=== PATIENT | male | born 1940 | race Caucasian/White ===

== ENCOUNTER 2016-09-16 17:02 | Observation (INO) | payer MEDICARE ==
[2016-09-16] MEDS ORDERED: Zofran 4 MG/2 ML VIAL IV PRN ×2 (17:36→19:19)
[2016-09-16 18:12] LABS: Mean Cell Volume 95.8 fl (78-100); Mean Corpuscular Hemoglobin 31.1 pg (26-32); Mean Platelet Volume 10.9 fl (6-9.5); Platelet Count 152 K/mm3 (150-450); Red Blood Count 4.27 M/mm3 (4.1-5.6); Red Cell Distribution Width 15.4 % (11.5-14.0); White Blood Count 7.1 K/mm3 (4.0-10.5)
[2016-09-16 18:25] LABS: ALBUMIN 3.2 g/dL (3.4-5.0); ANION GAP 10.9 MEQ/L (5-15); Carbon Dioxide 28.2 mEq/L (21-32); Potassium 3.5 mEq/L (3.5-5.1); Total Protein 7.8 gm/dL (6.4-8.2)
[2016-09-16] MEDS ORDERED: MORPHINE SULFATE 4 MG INJ IV PRN ×2 (18:36→19:19)
[2016-09-16] MEDS ORDERED: ROCEPHIN 1 Gm-D5w 50 ml Bag** 1 G/50 ML IVPB IV SCH (18:45)
--- NOTE | 2016-09-16 18:53 | PCM.HP ---
History of Present Illness - Chief Complaint Chief Complaint: abdominal pain Date: 09/16/16 History of Present Illness: is a 76 year old male. Who is a poor historian but notes he has been having right upper quadrant pain and vomiting all day. He came to [facility] care and appeared confused and dehydrated and was vomiting with pain in the right upper quadrant. He denies diarrhea or constipation. He usually goes to the [place] for his medical care. He was to have repeat labs several months ago for elevated liver enzymes. He started having discolored urine today as well and felt this was to do with it. denies hemetemesis or coffee ground emesis denies melena or hematochezia. - Review of Systems Constitutional: Chills, Night Sweats, No Fever Eyes: No Symptoms Ears, Nose, & Throat: No Symptoms Respiratory: No Cough, No Short Of Breath Cardiac: No Chest Pain, No Edema, No Syncope Abdominal/Gastrointestinal: Abdominal Pain, Nausea, Vomiting, No Diarrhea Genitourinary Symptoms: No Dysuria Musculoskeletal: No Back Pain, No Neck Pain Skin: No Rash Neurological: No Dizziness, No Focal Weakness, No Sensory Changes Psychological: No Symptoms Endocrine: No Symptoms Hematologic/Lymphatic: No Symptoms Immunological/Allergic: No Symptoms Medications & Allergies Home Medications: Home Medication List Albuterol Sulfate [Albuterol Sulfate Hfa] 2 puffs IH Q4H PRN 09/16/16 [History Confirmed 09/16/16] Aspirin 81 mg PO DAILY 09/16/16 [History Confirmed 09/16/16] Lisinopril 20 mg [Zestril 20 MG] 20 mg PO DAILY 09/16/16 [History Confirmed 09/16/16] Allergies/Adverse Reactions: Allergies Allergy/AdvReac Type Severity Reaction Status Date / Time No Known Drug Allergies Allergy Verified 09/16/16 19:03 - Past Medical History Neurological History: Dementia ENT History: No Pertinent History Cardiac History: Congestive Heart Failure, Hypertension Respiratory History: COPD Endocrine Medical History: No Pertinent History Musculoskelatal History: No Pertinent History GI Medical History: No Pertinent History History: No Pertinent History Pyscho-Social History: No Pertinent History Male Reproductive Disorders: No Pertinent History - Past Surgical History Past Surgical History: No Neuro Surgical History: No Pertinent History Cardiac History: No Pertinent History Respiratory Surgery: No Pertinent History GI Surgical History: No Pertinent History Genitourinary Surgical Hx: No Pertinent History Musculskeletal Surgical Hx: No Pertinent History Male Surgical History: No Pertinent History - Social History Smoking Status: Former smoker Alcohol: None Drug Use: none - Physical Exam General Appearance: no apparent distress Neurologic Exam: alert, oriented x 3, cooperative, confusion (he has a history of hallucinations I believe and he denies this now but it appears he may be having some auditory hallucinations and possibly visual as well. He has periods of confusion as well and inappropriately recalls recent events.) Eye Exam: scleral icterus, pale conjunctivae Ears, Nose, Throat Exam: pharynx normal, dry mucous membranes, No pharyngeal erythema Neck Exam: non-tender, supple, No JVD, No lymphadenopathy, No thyromegaly Respiratory Exam: rhonchi Cardiovascular Exam: regular rate/rhythm, normal heart sounds, normal peripheral pulses Gastrointestinal/Abdomen Exam: soft, normal bowel sounds, No tenderness, No distention, No mass, No guarding, No ecchymosis, No rebound Rectal Exam: not done Back Exam: normal inspection, No CVA tenderness, No vertebral tenderness, No rash Extremity Exam: normal inspection, No anita's sign, No pedal edema Skin Exam: warm, dry, No rash, No petechiae Results - Labs Lab/Micro Results: Lab Results-Last 24 Hours 09/16/16 09/16/16 Range/Units 17:50 17:50 WBC 7.1 (4.0-10.5) K/mm3 RBC 4.27 (4.1-5.6) M/mm3 Hgb 13.3 (12.5-18.0) gm/dl Hct 40.9 L (42-50) % MCV 95.8 (78-100) fl MCH 31.1 (26-32) pg MCHC 32.5 (32-36) g/dl RDW 15.4 H (11.5-14.0) % Plt Count 152 (150-450) K/mm3 MPV 10.9 H (6-9.5) fl Sodium 139 (136-145) mEq/L Potassium 3.5 (3.5-5.1) mEq/L Chloride 103 (98-107) mEq/L Carbon Dioxide 28.2 (21-32) mEq/L Anion Gap 10.9 (5-15) MEQ/L BUN 15 (9-20) mg/dL Creatinine 1.38 H (0.55-1.30) mg/dl Estimated GFR 53 ML/MIN Glucose 150 H (70-110) MG/DL Calcium 8.7 (8.5-10.1) mg/dL Total Bilirubin 5.0 H (0.2-1.0) mg/dL AST 85 H (15-37) U/L ALT 102 H (12-78) U/L Alkaline Phosphatase 189 H (46-116) U/L Serum Total Protein 7.8 (6.4-8.2) gm/dL Albumin 3.2 L (3.4-5.0) g/dL Lipase 159 (73-393) U/L - Radiology Impressions Radiology Exams & Impressions: Radiology Procedures Category Date Time Status ABDOMEN AND PELVIS W CONTRAST [CT] Stat Exams 09/16/16 18:35 Ordered Assessment/Plan (1) Abdominal pain Current Visit: Yes Status: Acute Qualifiers: Abdominal location: right upper quadrant Qualified Code(s): R10.11 - Right upper quadrant pain Assessment & Plan: improved with the zofran. with the elevated liver enzymes and the bili check CT abd/pelvis with contrast continue zofran and IV fluids and pain control will check hep b, c, hiv and iron levels as well with the elevated liver enzymes and liver ultrasound if not found etiology on the ct with the mild increase in bands will empirically start Rocephin the UA is pending right now recheck labs in am Code(s): R10.9 - UNSPECIFIED ABDOMINAL PAIN (2) Vomiting Current Visit: Yes Status: Acute Code(s): R11.10 - VOMITING, UNSPECIFIED (3) Essential hypertension Current Visit: Yes Status: Acute Code(s): I10 - ESSENTIAL (PRIMARY) HYPERTENSION (4) COPD (chronic obstructive pulmonary disease) Current Visit: Yes Status: Acute
[2016-09-16] MEDS ORDERED: TYLENOL 325 MG PO PRN (19:08)
[2016-09-16 19:09] LABS: BAND 5 % (0.0-2.0); Eosinophil 1 % (0.00-3.0); Platelet Estimate NORMAL (NORMAL); Total Cells Counted 100
[2016-09-16] MEDS ORDERED: PROTONIX 40 MG IV IV SCH (19:15)
[2016-09-16 19:36] LABS: INR 1.22 (0.8-3.0); PROTIME 13.6 SECONDS (8.83-12.87)
[2016-09-16] MEDS: Lactated Ringers 1,000 ML IV SCH (20:55)
[2016-09-16] MEDS ORDERED: Bystolic 5 MG PO SCH (22:00)
[2016-09-16 23:57] LABS: Collection Type CLEAN CATCH
[2016-09-16 23:58] LABS: ADD URINE CULTURE? YES (NO); Bacteria FEW /HPF (NEGATIVE); COMPLETE URINE MICROSCOPIC? YES; Epithelial Cells RARE /HPF (FEW); Ph 5.5 (5-6); WBC 0-2 /HPF (0-5)
[2016-09-17 05:34] LABS: BASOPHIL % 0.1 % (0.0-0.4); Eosinophil % 1.8 % (0.00-5.0); Granulocytes % 73.4 % (36.0-66.0); Lymphocytes % 13.6 % (24.0-44.0); Mean Cell Volume 95.1 fl (78-100); Mean Platelet Volume 10.9 fl (6-9.5); Monocytes % 11.1 % (0.0-12.0); Platelet Count 142 K/mm3 (150-450); Red Cell Distribution Width 15.3 % (11.5-14.0); White Blood Count 7.1 K/mm3 (4.0-10.5)
[2016-09-17 05:55] LABS: ALBUMIN 2.6 g/dL (3.4-5.0); ALKALINE PHOSPHATASE 163 U/L (46-116); BILIRUBIN,TOTAL 3.3 mg/dL (0.2-1.0); BLOOD UREA NITROGEN 11 mg/dL (9-20); CHLORIDE 106 mEq/L (98-107); Carbon Dioxide 26.7 mEq/L (21-32); Glucose 91 MG/DL (70-110); Potassium 3.5 mEq/L (3.5-5.1); SGOT/AST 73 U/L (15-37); SGPT/ALT 79 U/L (12-78); SODIUM 139 mEq/L (136-145); Total Protein 6.7 gm/dL (6.4-8.2)
[2016-09-17] MEDS: Lactated Ringers 1,000 ML IV SCH (06:33)
[2016-09-17] MEDS ORDERED: MORPHINE SULFATE 2 MG INJ IV PRN (07:14)
[2016-09-17 07:29] VITALS: BP 150/68
--- NOTE | 2016-09-17 08:09 | PCM.NOTE ---
Date and Time: 09/17/16 0757 Subjective Assessment: He has had no pain or vomiting all night feels good very hungry is very concerned about his dog and does not want to stay in the hospital any longer no fever or chills. Objective Exam General Appearance: no apparent distress, alert Neurologic Exam: alert, oriented x 3, cooperative, normal mood/affect, nml cerebellar function, sensation nml, No motor deficits Skin Exam: normal color, warm, dry Eye Exam: PERRL, EOMI, eyes nml inspection Ears, Nose, Throat Exam: normal ENT inspection, pharynx normal, moist mucous membranes Neck Exam: normal inspection, non-tender, supple, full range of motion Respiratory Exam: normal breath sounds, lungs clear, No respiratory distress Cardiovascular Exam: regular rate/rhythm, normal heart sounds Gastrointestinal/Abdomen Exam: soft, No tenderness, No mass Extremity Exam: normal inspection, normal range of motion Back Exam: normal inspection, normal range of motion, No CVA tenderness, No vertebral tenderness Male Genitalia Exam: deferred Rectal Exam: deferred OBJECTIVE DATA Vital Signs: Vital Signs - 24 hr Temp Pulse Resp BP Pulse Ox 09/17/16 07:27 98.4 F 61 18 150/68 97 09/17/16 04:00 98.7 F 56 L 20 138/60 97 09/16/16 23:55 97.9 F 59 L 20 113/82 95 09/16/16 19:35 98.9 F 80 20 145/70 96 Intake and Output: Intake & Output 09/14/16 09/15/16 09/16/16 09/17/16 11:59 11:59 11:59 11:59 Intake Total 1537 Output Total 900 Balance 637 Weight 79.515 kg Lab Results: Lab Results-Last 24 Hours 09/16/16 09/16/16 09/16/16 Range/Units 17:50 17:50 17:50 WBC 7.1 (4.0-10.5) K/mm3 RBC 4.27 (4.1-5.6) M/mm3 Hgb 13.3 (12.5-18.0) gm/dl Hct 40.9 L (42-50) % MCV 95.8 (78-100) fl MCH 31.1 (26-32) pg MCHC 32.5 (32-36) g/dl RDW 15.4 H (11.5-14.0) % Plt Count 152 (150-450) K/mm3 MPV 10.9 H (6-9.5) fl Gran % (36.0-66.0) % Lymphocytes % (24.0-44.0) % Monocytes % (0.0-12.0) % Eosinophils % (0.00-5.0) % Basophils % (0.0-0.4) % Segmented Neutrophils 85 H (36.-66.) % Band Neutrophils 5 H (0.0-2.0) % Lymphocytes (Manual) 5 L (24-44) % Monocytes (Manual) 4 (0.0-12.0) % Eosinophils (Manual) 1 (0.00-3.0) % Basophils # (0-0.4) Differential Comment NORMAL Platelet Estimate NORMAL (NORMAL) INR (0.8-3.0) Sodium 139 (136-145) mEq/L Potassium 3.5 (3.5-5.1) mEq/L Chloride 103 (98-107) mEq/L Carbon Dioxide 28.2 (21-32) mEq/L Anion Gap 10.9 (5-15) MEQ/L BUN 15 (9-20) mg/dL Creatinine 1.38 H (0.55-1.30) mg/dl Estimated GFR 53 ML/MIN Glucose 150 H (70-110) MG/DL Calcium 8.7 (8.5-10.1) mg/dL Iron (50-175) ug/dl TIBC (250-450) ug/dl Iron Saturation (20-39) % Ferritin 428 H (8-388) Total Bilirubin 5.0 H (0.2-1.0) mg/dL AST 85 H (15-37) U/L ALT 102 H (12-78) U/L Alkaline Phosphatase 189 H (46-116) U/L Ammonia (11-32) MMOL/l Serum Total Protein 7.8 (6.4-8.2) gm/dL Albumin 3.2 L (3.4-5.0) g/dL Lipase 159 (73-393) U/L Ur Collection Type Urine Color (YELLOW) Urine Appearance (CLEAR) Urine pH (5-6) Ur Specific [place] (1.005-1.025) Urine Protein (Negative) Urine Glucose (UA) (NEGATIVE) mg/dL Urine Ketones (NEGATIVE) Urine Nitrite (NEGATIVE) Urine Bilirubin (NEGATIVE) Urine Urobilinogen (0-1) mg/dL Urine WBC (Auto) (NEGATIVE) Urine RBC (Auto) (0-5) Jacky/ul Urine Microscopic RBC (0-2) /HPF Urine Microscopic WBC (0-5) /HPF Ur Epithelial Cells (FEW) /HPF Urine Bacteria (NEGATIVE) /HPF Specimen Received 09/16/16 09/16/16 09/16/16 Range/Units 17:50 17:50 19:42 WBC (4.0-10.5) K/mm3 RBC (4.1-5.6) M/mm3 Hgb (12.5-18.0) gm/dl Hct (42-50) % MCV (78-100) fl MCH (26-32) pg MCHC (32-36) g/dl RDW (11.5-14.0) % Plt Count (150-450) K/mm3 MPV (6-9.5) fl Gran % (36.0-66.0) % Lymphocytes % (24.0-44.0) % Monocytes % (0.0-12.0) % Eosinophils % (0.00-5.0) % Basophils % (0.0-0.4) % Segmented Neutrophils (36.-66.) % Band Neutrophils (0.0-2.0) % Lymphocytes (Manual) (24-44) % Monocytes (Manual) (0.0-12.0) % Eosinophils (Manual) (0.00-3.0) % Basophils # (0-0.4) Differential Comment Platelet Estimate (NORMAL) INR 1.22 (0.8-3.0) Sodium (136-145) mEq/L Potassium (3.5-5.1) mEq/L Chloride (98-107) mEq/L Carbon Dioxide (21-32) mEq/L Anion Gap (5-15) MEQ/L BUN (9-20) mg/dL Creatinine (0.55-1.30) mg/dl Estimated GFR ML/MIN Glucose (70-110) MG/DL Calcium (8.5-10.1) mg/dL Iron 35 L (50-175) ug/dl TIBC 198 L (250-450) ug/dl Iron Saturation 17.7 L (20-39) % Ferritin (8-388) Total Bilirubin (0.2-1.0) mg/dL AST (15-37) U/L ALT (12-78) U/L Alkaline Phosphatase (46-116) U/L Ammonia 21 (11-32) MMOL/l Serum Total Protein (6.4-8.2) gm/dL Albumin (3.4-5.0) g/dL Lipase (73-393) U/L Ur Collection Type Urine Color (YELLOW) Urine Appearance (CLEAR) Urine pH (5-6) Ur Specific [place] (1.005-1.025) Urine Protein (Negative) Urine Glucose (UA) (NEGATIVE) mg/dL Urine Ketones (NEGATIVE) Urine Nitrite (NEGATIVE) Urine Bilirubin (NEGATIVE) Urine Urobilinogen (0-1) mg/dL Urine WBC (Auto) (NEGATIVE) Urine RBC (Auto) (0-5) Jacky/ul Urine Microscopic RBC (0-2) /HPF Urine Microscopic WBC (0-5) /HPF Ur Epithelial Cells (FEW) /HPF Urine Bacteria (NEGATIVE) /HPF Specimen Received 09/16/16 09/17/16 09/17/16 Range/Units 22:30 05:25 05:25 WBC 7.1 (4.0-10.5) K/mm3 RBC 3.90 L (4.1-5.6) M/mm3 Hgb 12.1 L (12.5-18.0) gm/dl Hct 37.1 L (42-50) % MCV 95.1 (78-100) fl MCH 31.0 (26-32) pg MCHC 32.6 (32-36) g/dl RDW 15.3 H (11.5-14.0) % Plt Count 142 L (150-450) K/mm3 MPV 10.9 H (6-9.5) fl Gran % 73.4 H (36.0-66.0) % Lymphocytes % 13.6 L (24.0-44.0) % Monocytes % 11.1 (0.0-12.0) % Eosinophils % 1.8 (0.00-5.0) % Basophils % 0.1 (0.0-0.4) % Segmented Neutrophils (36.-66.) % Band Neutrophils (0.0-2.0) % Lymphocytes (Manual) (24-44) % Monocytes (Manual) (0.0-12.0) % Eosinophils (Manual) (0.00-3.0) % Basophils # 0.01 (0-0.4) Differential Comment Platelet Estimate (NORMAL) INR (0.8-3.0) Sodium 139 (136-145) mEq/L Potassium 3.5 (3.5-5.1) mEq/L Chloride 106 (98-107) mEq/L Carbon Dioxide 26.7 (21-32) mEq/L Anion Gap 10.0 (5-15) MEQ/L BUN 11 (9-20) mg/dL Creatinine 1.22 (0.55-1.30) mg/dl Estimated GFR > 60 ML/MIN Glucose 91 (70-110) MG/DL Calcium 8.2 L (8.5-10.1) mg/dL Iron (50-175) ug/dl TIBC (250-450) ug/dl Iron Saturation (20-39) % Ferritin (8-388) Total Bilirubin 3.3 H (0.2-1.0) mg/dL AST 73 H (15-37) U/L ALT 79 H (12-78) U/L Alkaline Phosphatase 163 H (46-116) U/L Ammonia (11-32) MMOL/l Serum Total Protein 6.7 (6.4-8.2) gm/dL Albumin 2.6 L (3.4-5.0) g/dL Lipase (73-393) U/L Ur Collection Type CLEAN CATCH Urine Color DARK YELLOW (YELLOW) Urine Appearance CLEAR (CLEAR) Urine pH 5.5 (5-6) Ur Specific [place] 1.010 (1.005-1.025) Urine Protein TRACE (Negative) Urine Glucose (UA) NEGATIVE (NEGATIVE) mg/dL Urine Ketones NEGATIVE (NEGATIVE) Urine Nitrite NEGATIVE (NEGATIVE) Urine Bilirubin LARGE (NEGATIVE) Urine Urobilinogen 1 (0-1) mg/dL Urine WBC (Auto) NEGATIVE (NEGATIVE) Urine RBC (Auto) NEGATIVE (0-5) Jacky/ul Urine Microscopic RBC 0-2 (0-2) /HPF Urine Microscopic WBC 0-2 (0-5) /HPF Ur Epithelial Cells RARE (FEW) /HPF Urine Bacteria FEW (NEGATIVE) /HPF Specimen Received 09/16/16 2230 Radiology Exams: Radiology Procedures Category Date Time Status ABDOMEN AND PELVIS W CONTRAST [CT] Stat Exams 09/16/16 18:35 Taken Ultrasound Gallbladder [GALLBLADDER] [US] Routine Exams 09/17/16 07:56 Ordered Assessment/Plan (1) Symptomatic cholelithiasis Current Visit: Yes Status: Acute Assessment & Plan: get ultrasound symptoms improving likely passed stone consult surgery On ROcephin bilirubin improving liver enzymes trending down afebrile. It appears he likely had gallstone that has passed as his symptoms are now resolved and bilirubin trending down. He does not want to stay in the hospital he is very concerned about his dog. Will check the ultrasound and if remains asymptomatic and no obstructing stone seen we can set up with outpatient surgery follow up if he is able to tolerate eating. Code(s): K80.20 - CALCULUS OF GALLBLADDER W/O CHOLECYSTITIS W/O OBSTRUCTION (2) Abdominal pain Current Visit: Yes Status: Acute Qualifiers: Abdominal location: right upper quadrant Qualified Code(s): R10.11 - Right upper quadrant pain Code(s): R10.9 - UNSPECIFIED ABDOMINAL PAIN (3) Vomiting Current Visit: Yes Status: Acute Code(s): R11.10 - VOMITING, UNSPECIFIED (4) Essential hypertension Current Visit: Yes Status: Acute Code(s): I10 - ESSENTIAL (PRIMARY) HYPERTENSION (5) COPD (chronic obstructive pulmonary disease) Current Visit: Yes Status: Acute
[2016-09-17] MEDS ORDERED: Ventolin Hfa MDI IH PRN (08:43)
[2016-09-17] MEDS ORDERED: PROVENTIL COMMON CANISTER IH PRN (08:46)
--- NOTE | 2016-09-17 08:52 | XRAY ---
Indication: Vomiting and right upper quadrant pain. Multiple contiguous axial images obtained through the abdomen and pelvis using 80 cc Isovue 370 contrast. Enteric contrast also given. Comparison: None Lung bases hyperinflated with scattered bilateral fibrosis/scarring. No consolidation or large effusion. Right infrahilar calcified nodes. Heart is not enlarged. Gallbladder is abnormally distended with wall thickening concerning for cholecystitis. Common bile duct is also prominent up to 10 mm with tiny intraluminal stones/gravel. No abnormal intrahepatic biliary distention. Contrasted stomach and bowel loops appear nonobstructed. No free fluid/air. Multiple prostate radiation seeds, a few calcified hepatic/splenic granulomas, and tiny exophytic left renal cyst. Remaining liver, pancreas, spleen, adrenal glands, kidneys, ureters, and bladder appear unremarkable. Mild aortoiliac calcifications. No AAA or pathologic retroperitoneal lymphadenopathy. Osseous structures intact with moderate degenerative changes throughout the spine. Small fatty bilateral inguinal hernias. Impression: 1. Abnormal distended gallbladder with wall thickening. Cholecystitis is of primary concern. Common bile duct also prominent with tiny gallstones/gravel. Gallbladder sonogram may yield further information if clinically warranted. 2. Incidental tiny left renal cyst, bilateral fatty inguinal hernias, and evidence for old granulomatous disease. Comment: Preliminary interpretation was made by [facility]. No critical discrepancy. CT DI 26.15
[2016-09-17 09:07] VITALS: PULSE 56; O2SAT 95
[2016-09-17] MEDS ORDERED: FLUZONE HIGH-DOSE 2016-17 SYR IM ONE (10:00)
[2016-09-17] MEDS ORDERED: Zestril 20 MG PO SCH (10:00)
[2016-09-17] MEDS ORDERED: PREVNAR 13 SYRINGE IM ONE (10:00)
--- NOTE | 2016-09-17 10:36 | XRAY ---
Indication: Right upper quadrant pain. Two-dimensional right upper quadrant abdominal sonogram performed. Comparison: None Gallbladder is moderately distended without gallstones or pericholecystic fluid. Wall thickness measures 2.3 mm, within normal range. Common bile duct measures 9-10 mm. No intrahepatic biliary distention. Pancreas not seen due to overlying bowel gas. Right kidney measures 10.7 cm in length and appears sonographically normal. No ascites. Impression: 1. Distended gallbladder without gallstones or features for acute cholecystitis. Prominent common bile duct. 2. Pancreas obscured by overlying bowel gas.
--- NOTE | 2016-09-17 10:49 | PCM.DCORD ---
- Discharge Discharge Date: 09/17/16 Disposition: Home, Self-Care Condition: Stable Prescriptions: New Amoxicillin/Potassium Clav [Augmentin 875-125 Tablet] 875 mg PO BID #14 tablet Continue Lisinopril 20 mg [Zestril 20 MG] 20 mg PO DAILY Aspirin 81 mg PO DAILY Albuterol Sulfate [Albuterol Sulfate Hfa] 2 puffs IH Q4H PRN PRN Reason: Shortness Of Breath Follow up with: MATTHEW PERKINS MD [Primary Care Provider] - 1 Week LAVERNE MAE [COURTESY STAFF] - 1 Week
--- NOTE | 2016-09-17 21:24 | PCM.DS ---
Discharge Summary Date of Admission: 09/16/16 17:02 Date of Discharge: 09/17/16 Admitting Physician: RAE GAMBOA Consults: Consults on Case 09/17/16 07:57 Consult Surgery ROUTINE Primary Care Provider: MATTHEW PERKINS GABBY Allergies Allergies No Known Drug Allergies Allergy (Verified 09/16/16 19:03) Hospital Summary - Hospital Course Hospital Course: Mr. Kidd is a very poor historian who usually follows with the [place] and developed orange urine, right upper quadrant pain and vomiting and presented to [facility] care and appeared jaundice at the time and in significant distress. He was thus convinced to do a direct admission after a 1 hour discussion with him about who would watch his dog. He eventually was admitted and treated with nausea medicine and Rocephin. labs showed elevated bili to 5 and mild increase in ast/alt/alp with normal ammonia and inr. He had a CT/abd and pelvis showing concern for common bile duct stone with distended gallbladder and otherwise normal and after the arrival he had no pain, nause or vomiting and vital signs were unremarkable. His am labs showed improvement in the bilirubin and no elevated wbc and was afebrile. He had ultrasound in the am and was no pain at that time and just showed the distended gallbladder and larger cbd but no stones at that time. He was very anxious about being in the hospital and dressed himself immediately following the ultrasound and was ready to leave. He did not wish to stay and said he would follow up as an outpatient for this with surgery. We discussed risk of recurrence and possible undiagnosed obstructing lesion like a cancer and the need to follow up. It appears likely he had an obstructing gallstone that passed given his symptoms and resolution of symptoms and now improvement will have surgery evaluate to see if they would like an MRCP to rule out obstructing mass or would consider going ahead and doing an elective cholecytectomy for this or not. - Vitals & Intake/Output Vital Signs: Vital Signs Temperature 98.4 F 09/17/16 07:27 Pulse Rate 56 L 09/17/16 09:05 Respiratory Rate 18 09/17/16 09:05 Blood Pressure 150/68 09/17/16 07:27 O2 Sat by Pulse Oximetry 95 09/17/16 09:05 Intake & Output: Intake & Output 09/15/16 09/16/16 09/17/16 09/18/16 11:59 11:59 11:59 11:59 Intake Total 1537 Output Total 900 Balance 637 Weight 79.515 kg - Lab Result Diagrams: 09/17/16 05:25 09/17/16 05:25 Lab Results-Last 24 Hrs: Lab Results-Last 24 Hours 09/16/16 09/17/16 09/17/16 Range/Units 22:30 05:25 05:25 WBC 7.1 (4.0-10.5) K/mm3 RBC 3.90 L (4.1-5.6) M/mm3 Hgb 12.1 L (12.5-18.0) gm/dl Hct 37.1 L (42-50) % MCV 95.1 (78-100) fl MCH 31.0 (26-32) pg MCHC 32.6 (32-36) g/dl RDW 15.3 H (11.5-14.0) % Plt Count 142 L (150-450) K/mm3 MPV 10.9 H (6-9.5) fl Gran % 73.4 H (36.0-66.0) % Lymphocytes % 13.6 L (24.0-44.0) % Monocytes % 11.1 (0.0-12.0) % Eosinophils % 1.8 (0.00-5.0) % Basophils % 0.1 (0.0-0.4) % Basophils # 0.01 (0-0.4) Sodium 139 (136-145) mEq/L Potassium 3.5 (3.5-5.1) mEq/L Chloride 106 (98-107) mEq/L Carbon Dioxide 26.7 (21-32) mEq/L Anion Gap 10.0 (5-15) MEQ/L BUN 11 (9-20) mg/dL Creatinine 1.22 (0.55-1.30) mg/dl Estimated GFR > 60 ML/MIN Glucose 91 (70-110) MG/DL Calcium 8.2 L (8.5-10.1) mg/dL Total Bilirubin 3.3 H (0.2-1.0) mg/dL AST 73 H (15-37) U/L ALT 79 H (12-78) U/L Alkaline Phosphatase 163 H (46-116) U/L Serum Total Protein 6.7 (6.4-8.2) gm/dL Albumin 2.6 L (3.4-5.0) g/dL Ur Collection Type CLEAN CATCH Urine Color DARK YELLOW (YELLOW) Urine Appearance CLEAR (CLEAR) Urine pH 5.5 (5-6) Ur Specific [place] 1.010 (1.005-1.025) Urine Protein TRACE (Negative) Urine Glucose (UA) NEGATIVE (NEGATIVE) mg/dL Urine Ketones NEGATIVE (NEGATIVE) Urine Nitrite NEGATIVE (NEGATIVE) Urine Bilirubin LARGE (NEGATIVE) Urine Urobilinogen 1 (0-1) mg/dL Urine WBC (Auto) NEGATIVE (NEGATIVE) Urine RBC (Auto) NEGATIVE (0-5) Jacky/ul Urine Microscopic RBC 0-2 (0-2) /HPF Urine Microscopic WBC 0-2 (0-5) /HPF Ur Epithelial Cells RARE (FEW) /HPF Urine Bacteria FEW (NEGATIVE) /HPF Specimen Received 09/16/16 2230 - Radiology Exams Ordered Rad Exams-Entire Visit: Radiology Procedures Category Date Time Status ABDOMEN AND PELVIS W CONTRAST [CT] Stat Exams 09/16/16 18:35 Completed Ultrasound Gallbladder [GALLBLADDER] [US] Routine Exams 09/17/16 07:56 Completed - Procedures and Test Procedures and Tests throughout Hospitalization: Therapy Orders & Screens 09/17/16 09:04 Respiratory MDI UD Comment: ALBUTEROL MDI Q4PRN Diagnosis: abdominal pain Discharge Exam General Appearance: no apparent distress, alert, anxiety Neurologic Exam: alert, oriented x 3, cooperative, normal mood/affect, nml cerebellar function, sensation nml, No motor deficits Skin Exam: normal color, warm, dry Eye Exam: PERRL, EOMI, eyes nml inspection Ears, Nose, Throat Exam: normal ENT inspection, pharynx normal, moist mucous membranes Neck Exam: normal inspection, non-tender, supple, full range of motion Respiratory Exam: normal breath sounds, lungs clear, No respiratory distress Cardiovascular Exam: regular rate/rhythm, normal heart sounds Gastrointestinal/Abdomen Exam: soft, No tenderness, No mass Extremity Exam: normal inspection, normal range of motion Back Exam: normal inspection, normal range of motion, No CVA tenderness, No vertebral tenderness Male Genitalia Exam: deferred Rectal Exam: deferred Final Diagnosis/Problem List - Final Discharge Diagnosis/Problem (1) Symptomatic cholelithiasis Status: Acute Assessment & Plan: suspected obstructing stone that has now passed given he was symptomatic just prior to the CT but has been asymptomatic all night prior to the ultrasound that didn't show any stones outpatient referral to surgery for consideration of surgery vs MRCP he refused inpatient evaluation of this (2) Abdominal pain Status: Resolved (3) Vomiting Status: Resolved (4) Essential hypertension Status: Acute (5) COPD (chronic obstructive pulmonary disease) Status: Acute - Discharge Discharge Date: 09/17/16 Disposition: Home, Self-Care Condition: Stable Prescriptions: New Amoxicillin/Potassium Clav [Augmentin 875-125 Tablet] 875 mg PO BID #14 tablet Continue Lisinopril 20 mg [Zestril 20 MG] 20 mg PO DAILY Aspirin 81 mg PO DAILY Albuterol Sulfate [Albuterol Sulfate Hfa] 2 puffs IH Q4H PRN PRN Reason: Shortness Of Breath Instructions: [place] Diet, Gallstones, Abdominal Pain-Adult Follow up with: MATTHEW PERKINS MD [Primary Care Provider] - 09/24/16 9:30 am LAVERNE MAE [COURTESY STAFF] - Call for Appointment (Call on Tuesday.) Forms: Discharge Instructions, Patient Portal Information
[2016-09-18 06:12] LABS: Hepatits C Antibody by EIA Non Reactive (Non Reactive)
[2016-09-18 19:06] LABS: Hepatitis B Sur Ag Screen Non Reactive (Non Reactive)
== END 2016-09-17 11:05 | disposition home or self-care (01) ==
LOC: MED SURG 17:02
PROVIDERS: ADMIT Family Medicine; ATTEND Family Medicine
DX: K80.20 Calculus of gallbladder without cholecystitis without obstruction (principal); I10 Essential (primary) hypertension; J44.9 Chronic obstructive pulmonary disease, unspecified; R10.11 Right upper quadrant pain; R68.83 Chills (without fever); R61 Generalized hyperhidrosis; R11.2 Nausea with vomiting, unspecified; I50.9 Heart failure, unspecified; Z23 Encounter for immunization
CPT/HCPCS: 36415; 74177; 76705; 80053; 81000; 82140; 82728; 83540; 83550; 83690; 85025; 85610; 86701; 86702; 86803; 87086; 87340; 87389; 90670; 94760; G0009; G0378; J0696